=== PATIENT | female | born 1955 | race Caucasian/White ===

== ENCOUNTER 2024-03-26 15:01 | Emergency (ER) | payer MEDICARE ==
[~2024-03-26] VITALS: Ht 170.2 cm; Wt 90.7 kg
[~2024-03-26 15:01] MED LIST: ACET500; AMOCLA875 PO; ASCO1ER; ASCO500 PO; ASPI81CH PO; ASPI81EC; ASPI81EC PO; BCOIRO PO; CALCIT950 PO; CARV6.25 PO; CEPH500 PO; CETI10 PO; CLOB.05TC TP; CLOB.05TO TP; CYCL10 PO; DIAZ5 PO; DIPATR PO; DIPH50; DSS; DULO30 PO; DULO60 PO; FISH1000 PO; GABA300 PO; HYDACE5 PO; HYDCOR2.5B TOP; IBUP400 PO; KRILL OIL500 MG PO; LORA10; METTREX2.5 PO; MULVITMIND; MULVITMINF PO; NAPR220 PO; NAPR550 PO; OMEGA-3 PO; OMEP10ER; OMEP20ER; OMEP20ER PO; OXYACE5T PO; OXYACE7.5T PO; POLY17UD PO; POLY500 PO; PRED20 PO; PREG100; PREG100 PO; PROC10 PO; PROM25 PO; SIMV10 PO; SIMVASTATIN; SUCR1 PO; TRAM50; TRAM50 PO; TRAMADOL; TRIA80TC TOP; VITAMIN C PO; Vitamin C100 M1 PO; [UNRECOGNIZED DRUG - OTHER] PO; [UNRECOGNIZED DRUG - OTHER] PO
[2024-03-26] MEDS ORDERED: MULVITA PO (15:11)
[2024-03-26] MEDS ORDERED: MethylPREDNISolone Sod Succ 125 MG Vial IV ONE (15:30)
[2024-03-26] MEDS ORDERED: DiphenhydrAMINE HCl 50 MG/ML 1ML Vial IV ONE (15:30)
[2024-03-26] MEDS ORDERED: Ketorolac Tromethamine 15mg Vial IV ONE (15:30)
[2024-03-26] MEDS ORDERED: Famotidine 10 MG/ML 2ML Vial IV ONE (15:30)
[2024-03-26 15:41] LABS: BASOPHILS ABSOLUTE AUTO 0.03 K/mm3 (0.00-0.23); BASOPHILS PERCENT AUTO 0 % (0-2); EOSINOPHILS ABSOLUTE AUTO 0.08 K/mm3 (0.00-0.68); EOSINOPHILS PERCENT AUTO 1 % (0-6); Hematocrit 41.5 % (33.0-51.0); Hemoglobin 14.5 g/dL (11.5-16.0); IMMATURE GRAN ABSOLUTE AUTO 0.02 K/mm3 (0.00-0.10); IMMATURE GRAN PERCENT AUTO 0 % (0-1); LYMPHOCYTES PERCENT AUTO 31 % (21-46); MONOCYTES ABSOLUTE AUTO 0.52 K/mm3 (0.16-1.47); MONOCYTES PERCENT AUTO 7 % (4-13); Mean Corpuscular HGB 31.3 pg (26.0-34.0); Mean Corpuscular HGB Conc 34.9 g/dL (31.5-36.5); Mean Corpuscular Volume 90 fL (80-100); Mean Platelet Volume 8.6 fL (9.1-12.4); NEUTROPHILS ABSOLUTE AUTO 4.37 K/mm3 (1.96-9.15); NEUTROPHILS PERCENT AUTO 61 % (41-73); Platelet Count 307 K/mm3 (150-400); RDW Coefficient Variation 12.8 % (11.7-14.2); RDW Standard Deviation 41.9 fL (35.1-46.3); Red Blood Cell Count 4.63 M/mm3 (3.80-5.20); White Blood Cell Count 7.22 K/mm3 (4.00-11.30)
[2024-03-26 16:18] LABS: Albumin, Blood 3.9 g/dL (3.4-5.0); Bilirubin, Total 0.5 mg/dL (0.1-1.0); Bun/Creatinine Ratio 17.4 (12.0-20.0); Calcium, Blood 9.4 mg/dL (8.5-10.1); Creatinine, Blood 0.75 mg/dL (0.40-1.00); Globulin, Blood 4.1 g/dL (2.2-4.0); Potassium, Blood 3.8 mmol/L (3.5-5.5)
[2024-03-26 16:36] LABS: Source, Urine Clean Catch
[2024-03-26 16:43] LABS: Appearance, Urine Clear (Clear); Bilirubin, Urine Neg (Neg); Blood, Urine 2+ (Neg); Glucose Qualitative, Urine Neg (Neg); Ketones, Urine Neg (Neg); Leukocyte Esterase, Urine 1+ (Neg); Nitrite, Urine Neg (Neg); Protein, Urine Neg (Neg); Specific Gravity, Urine 1.005 (1.003-1.022); Urobilinogen, Urine NORM (Normal)
[2024-03-26 16:52] LABS: Color, Urine Pale Yellow (P-Yellow)
[2024-03-26 16:54] LABS: Bacteria Rare /hpf; Red Blood Cells, Urine 0-2 /hpf (0-2); Squamous Epithelial Cells Few /hpf (Few)
[2024-03-26] MEDS ORDERED: RX Prepack 6 Tabs Oxycodone 5mg UD ONE (17:20)
[2024-03-26] MEDS ORDERED: TAMS.4ER PO (17:22)
[2024-03-26] MEDS ORDERED: OXAYDO5 M1 PO (17:22)
[2024-03-26] MEDS ORDERED: ONDA4ODT MM (17:22)
[2024-03-26 17:46] VITALS: BP 139/77
== END 2024-03-26 17:45 | disposition home or self-care (01) ==
LOC: ER 15:01
PROVIDERS: Physician Assistant
DX: N13.2 Hydronephrosis with renal and ureteral calculous obstruction (principal); I10 Essential (primary) hypertension; Z79.899 Other long term (current) drug therapy; Z91.041 Radiographic dye allergy status; Z88.8 Allergy status to other drugs, medicaments and biological substances
CPT/HCPCS: 74177; 80053; 81001; 83690; 85025; 87086; 96374-59; 96375; 99284-25; J1200; J1885; J2919; Q9967